=== PATIENT | male | born 1960 | race Caucasian/White ===

== ENCOUNTER 2021-11-12 00:42 | Day surgery (SDC) | payer BC, SELFPAY ==
[2021-10-29 13:36] VITALS: BMI 26.6
[2021-11-12 12:02] VITALS: BP 136/84; PULSE 84; RESP 16; TEMP 36.8; O2SAT 99
[2021-11-12] MEDS: LACTATED RINGERS 1,000 ML 150 ML IV CONT (12:12)
--- NOTE | 2021-11-12 12:16 | WPDANESEPPF ---
Anes - Initial Pre Proc Eval Procedure: Operation Date: 11/12/21 13:15 Proposed Procedures p Screening Colonoscopy - Ramsey Kruse MD Date/Time: 11/12/21 12:16 Surgeon: Ramsey Kruse MD Pre Op Diagnosis: neoplasm screening Patient Data Age: 61 Gender: M Height: 1.68 m Weight: 73.9 kg Last Vital Signs Temp 36.8 C 11/12/21 12:02 Pulse 84 11/12/21 12:02 Resp 16 11/12/21 12:02 BP 136/84 11/12/21 12:02 Pulse Ox 99 11/12/21 12:02 Allergies Allergy/AdvReac Type Severity Reaction Status Date / Time No Known Allergies Allergy Unknown Verified 11/12/21 12:01 Home Medications Medication Instructions Recorded Confirmed Type No Home Medications 06/22/20 11/12/21 History Patient hx anesthesia problems: none Family hx anesthesia problems: none Results Review: All pre-operative results and documents have been reviewed as part of the pre-operative evaluation. PMFSH Family History Family History Father Family history of hepatitis Family history of malignant neoplasm Social History Social History Smoking status: Never smoker Alcohol intake: current Drinks per week: 10 Substance use: never Substance use type: does not use Living arrangements: with family Gender identity (if verbalized by the patient): Male Spiritual care concerns: No Anes - Eval Final PreProcedure Day of Procedure 11/12/21 12:16 Patient weight: overweight Heart: regular rate and rhythm Lungs: clear to auscultation Airway: Mallampati scale class II Neurological: alert and oriented Last oral intake: >/= 8 hours ASA classification: II Emergent: no Anesthetic plan: proceed Anesthesia type and monitoring: general GIVS and standard monitoring Results Review: All pre-operative results and documents have been reviewed as part of the pre-operative evaluation. Informed Consent: The patient's anesthetic plan and its attendant risks and benefits were discussed with the patient/family/POA. Questions were solicited and answers provided to the satisfaction of the patient/family/POA.
--- NOTE | 2021-11-12 12:46 | WPDGICN ---
Assessment and Plan Assessment and plan (1) Family history of colonic polyps: Code(s): Z83.71 - Family history of colonic polyps Status: Acute Assessment and Plan: Patient's sister had colon polyps. Patient presents today for neoplasia screening colonoscopy. Further recommendations will be given after endoscopy. GI Consult Note Consult date/time: 11/12/21 12:46 HPI: Mark Bunn is a 61 year old male Presents for screening colonoscopy. Patient reports that his current weight appetite and bowel movements are normal. He denies abdominal pain. He has had no bleeding. Family history is significant that he his sister who is a triplet. Was found to have colon polyps. Patient presents today for neoplasia screening colonoscopy. Review of Systems Review of Systems: All systems reviewed & are unremarkable except as noted in HPI and below PMFSH Family History Family History Father Family history of hepatitis Family history of malignant neoplasm Social History Social History Smoking status: Never smoker Alcohol intake: current Drinks per week: 10 Substance use: never Substance use type: does not use Living arrangements: with family Gender identity (if verbalized by the patient): Male Spiritual care concerns: No Meds Home Medications and Allergies Home Medications Medication Instructions Recorded Confirmed Type No Home Medications 06/22/20 11/12/21 History Allergies Allergy/AdvReac Type Severity Reaction Status Date / Time No Known Allergies Allergy Unknown Verified 11/12/21 12:01 Vital Signs Vital Signs - 24 hr 11/12/21 12:02 Temperature 98.2 F Pulse Rate 84 Respiratory Rate 16 Blood Pressure 136/84 Pulse Oximetry 99 Exam Narrative: Physical exam reveals patient to be alert. Vital signs stable. HEENT exam is unremarkable. Patient is anicteric. Lungs are clear to auscultation and percussion. Heart is without murmur or extra sounds. Abdominal exam bowel sounds are present soft nontender with no organomegaly. Digital external rectal exam is normal.
[2021-11-12 12:49] VITALS: BP 105/62; PULSE 67; RESP 17; O2SAT 99
[2021-11-12 12:59] VITALS: BP 106/86; PULSE 69; RESP 18; O2SAT 99
[2021-11-12 13:09] VITALS: BP 132/78; PULSE 73; RESP 23; O2SAT 99
== END 2021-11-12 13:22 | disposition home or self-care (01) ==
PROVIDERS: PCP Internal Medicine; Visit Provider Internal Medicine Gastroenterology
PROC: 0DJD8ZZ Inspection of Lower Intestinal Tract, Via Natural or Artificial Opening Endoscopic (ICD-10-PCS; CPT 45378; principal; 2021-11-12 13:15)
DX: Z12.11 Encounter for screening for malignant neoplasm of colon (principal); Z83.71 Family history of colonic polyps; D12.8 Benign neoplasm of rectum
CPT/HCPCS: 45385; 88305; J2704; J7120

== ENCOUNTER 2024-10-22 06:49 | Outpatient (CLI) | payer BC, SELFPAY ==
--- NOTE | ~2024-10-22 | MR_ITS ---
MRI of the right shoulder Technique: Axial proton-density fat-sat images, coronal proton density fat-sat and T2 fat-sat images, and sagittal T1-weighted and T2 fat-sat images were acquired. Clinical History: Pain Findings: There is severe AC joint degenerative change, the bony productive change of the distal clav icle in particular. Coracoclavicular, coracoacromial, coracohumeral ligaments appear intact. There are complete, full-thickness tears of the entirety of the supraspinatus and infraspinatus tendo ns, which appears retracted to the level of glenoid. Fluid-filled defect measures approximately 5.4 x 4.9 cm in size. Tendon of long head of the biceps is intact, with questionable medial subluxation or dislocation. Possible tearing of the distal subscapularis tendon resulting in the aforementioned med ial biceps tendon subluxation/dislocation. There are extensive degenerative tearing of the superior labrum extending to anterosuperior and poste rior superior portions. Humeral head is high riding, with a medial osteophyte present. Inferior glenohumeral ligament is inta ct. Small glenohumeral joint effusion present. There is marked fatty atrophy infraspinatus muscle bel ly. Probable mild loss of bulk of the supraspinatus muscle belly. Impression: Massive rotator cuff tear, as detailed above, with complete full-thickness tears of the supraspinatus and infraspinatus tendons. Marked fatty atrophy infraspinatus muscle belly. Probable mild loss of bu lk of the supraspinatus muscle belly. Suspected tearing of the distal subscapularis tendon with probable medial dislocation/subluxation of the long head biceps tendon. Extensive degenerative SLAP tear of the labrum. Severe AC joint degenerative change. Reviewed, dictated and finalized at location . Impression: Massive rotator cuff tear, as detailed above, with complete full-thickness tear s of the supraspinatus and infraspinatus tendons. Marked fatty atrophy infraspi natus muscle belly. Probable mild loss of bulk of the supraspinatus muscle levin y. Suspected tearing of the distal subscapularis tendon with probable medial dislo cation/subluxation of the long head biceps tendon. Extensive degenerative SLAP tear of the labrum. Severe AC joint degenerative change.
== END 2024-10-22 06:50 | disposition home or self-care (01) ==
LOC: MICIMG 06:50
PROVIDERS: PCP Physician Assistant Medical; Visit Provider Nurse Practitioner Family
DX: M75.121 Complete rotator cuff tear or rupture of right shoulder, not specified as traumatic (principal); S43.431A Superior glenoid labrum lesion of right shoulder, initial encounter; M62.511 Muscle wasting and atrophy, not elsewhere classified, right shoulder; M19.011 Primary osteoarthritis, right shoulder; X58.XXXA Exposure to other specified factors, initial encounter
CPT/HCPCS: 73221

== ENCOUNTER 2024-12-28 10:40 | Outpatient (CLI) | payer BC, SELFPAY ==
--- NOTE | ~2024-12-28 | CT_ITS ---
EXAMINATION: CT shoulder RT wo con DATE: 12/28/2024 11:01 INDICATION: Right shoulder pain and limited range of motion for preoperative planning. TECHNIQUE: High resolution computed tomography (CT) of the right shoulder was performed without intra venous contrast. Additional sagittal and coronal reconstructions were performed. Automated exposure c ontrol and iterative reconstruction technique were employed. The dose-length product was 322.80 mGy-c m. COMPARISON: Right shoulder MR dated 10/22/2024 FINDINGS: Cephalad subluxation of the right humeral head with respect to the glenoid with secondary remodeling of the undersurface of acromion along with prominent fatty atrophy of the supraspinatus, infraspinatu s and subscapularis muscle bellies consistent with chronic rotator cuff tear of the corresponding ten dons. No acute fracture. Moderate glenohumeral and acromioclavicular osteoarthritis. Cystic change al yanni the greater tuberosity likely related to chronic rotator cuff disease. No joint effusion. Calcifi ed right upper and lower lobe nodules along with calcified nodule at the dome of the liver and calcif ied right hilar and mediastinal lymph nodes consistent with old granulomatous disease. No pathologica lly enlarged right axillary lymphadenopathy. Moderate to severe lower cervical and moderate thoracic spondylosis. IMPRESSION: 1. 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 Reviewed, dictated and finalized at location A. IMPRESSION: 1. 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
--- OUTSIDE RECORDS SUMMARY | 2024-12-28 11:56 | XMS_ITS | Encounter Summary ---
Author Organization [facility] Address [address] [place] [address] Care Team Providers Care Ski Production Supervisor Name Role Phone Marcelino Everett MD Primary Care Provider [phone] Encounter Details Date Type Department Care Team (Late st Contact Info) Description 02/21/2020 Lab Requisition [facility] DermPath Lab [address] [facility] [facility] [place] [address] Nissa Batista DO [address] [facility] [address] [place] [address] Social History Tobacco Use Types Packs/Day Years Used Date Smoking Tobacco: Never Assessed Sex and Gender Information Value Date Recorded Sex Assigned at Not on file Legal Sex Male 3:45 PM CDT Gender Identity Not on file Sexual Orientation Not on file documented as of this encounter Plan of Treatment Not on file documented as of this encounter Procedures Procedure Name Priority Date/Time Associated Diagnosis Comments DERMATOPATHOLOGY Routine 02/17/2020 12:0 0 AM CDT documented in this encounter Results * DERMATOPATHOLOGY (02/17/2020 12:00 AM CDT) Case Report Dermatopathology Report Case: [id number] Authorizing Provider: Nissa Batista DO Collected: 02/17/2020 12:00 AM Ordering Location: [facility] DermPath Lab Received: 02/21/2020 10:55 AM Pathologist: Mary Velasquez MD Specimen: Skin, left ant shoulder 0 8:02 PM CDT DERMATOPATHOLOGY LABORATORY Final Diagnosis Specimen A. SKIN, left ant shoulder: ACTINIC KERATOSIS, LICHENOID (L57.0) 0 8:02 PM CDT DERMATOPATHOLOGY LABORATORY at 2002 CDT Clinical History LPLK; R/O atypia 0 8:02 PM CDT DERMATOPATHOLOGY LABORATORY Gross Description Specimen A: Received is one formalin filled container labeled with the patient's name and designated left ant shoulder. The specimen consists of a shave biopsy measuring 7x4x1 mm. Jar 0. 0 8:02 PM CDT DERMATOPATHOLOGY LABORATORY Microscopic Description Specimen A. SKIN, left ant shoulder: There is focal parakeratosis. The lower half of the epidermis shows disorderly maturation of keratinocytes with nuclear pleomorphism. The dermis shows a band-like, chronic inflammatory infiltrate with occasional apoptotic keratinocytes and some basal vacuolar alteration. 0 8:02 PM CDT DERMATOPATHOLOGY LABORATORY Disclaimer An external and internal positive and negative controls are appropriate for the histochemical, immunohistochemical and immunofluorescence stain(s) in this case (if any), except where stated explicitly. The performance characteristics of the stain(s) cited in this report were developed and its performance characteristic determined by the Dermatopathology Laboratory at [facility], directed by Dr. Sita Leahy. These tests need not be, and therefore are not, approved by the [place] Food and Drug Administration. The tests are used for clinical purposes. Billing Codes Specimen Charges Stain Charges 25130 1 0 8:02 PM CDT DERMATOPATHOLOGY LABORATORY Embedded Images 0 8:02 PM CDT DERMATOPATHOLOGY LABORATORY Pathology/Cytolog y TISSUE SPECIMEN FROM SKIN / Unknown 02/17/2020 02/21/2020 10:55 AM CDT us Nissa Batista DO LAB - PATHOLOGY/CYTOLOGY ORDERABLES Final Result DERMATOPATHOLOGY LABORATORY [facility] - Department of Dermatology [facility]/[address] [address], [facility] [phone] documented in this encounter Visit Diagnoses Not on filedocumented in this encounter Care Teams Ski Production Supervisor Relationship Specialty Start Date End Date Marcelino Everett MD [address] [place] [address] [address] [place] [address] PCP - General 11/18/21 documented as of this encounter
--- OUTSIDE RECORDS SUMMARY | 2024-12-28 11:56 | XMS_ITS | Clinical Summary ---
Author Organization [facility] Address [address] [place] [address] Care Team Providers Care Chicken Hanger Name Role Phone Marcelino Everett MD Primary Care Provider [phone] Source Comments [facility],non-owned Affiliates and Associated Physician Practices is amultiple site organization consisting of ambulatory clinics and hospital sitesin [place], [place] and [place]. This disclosure is being madepursuant to the Care Everywhere program and may not contain all information available regarding this patient. Last updated 18.[facility] Social History Tobacco Use Types Packs/Day Years Used Date Smoking Tobacco: Never Assessed Sex and Gender Information Value Date Recorded Sex Assigned at Not on file Legal Sex Male 3:45 PM CDT Gender Identity Not on file Sexual Orientation Not on file Plan of Treatment Health Maintenance Due Date Last Done Comments COLOGUARD (AGES 45-75) - COL ON CA SCREENING 1959 COLON MONITORING 1959 COLONOSCOPY - COLON CA SCREENING 1959 CT COLONOGRAPHY - COLON CA SCREENING 1960 Colorectal Cancer Screening 1959 FIT - COLON CA SCREENING 1959 FLEX SIG - COLON CA SCREENING 1959 LIPID TESTING 1959 HIV SCREENING 1974 HEPATITIS C SCREENING 04/19/1977 DTAP/TDAP/TD VACCINES (1 - Tdap) 1978 PNEUMOCOCCAL VACCINE 50+ (1 of 1 - PCV) 2009 ZOSTER VACCINE (1 of 2) 2009 COVID-19 VACCINE ( - 2023-2 5 season) 2024 DEPRESSION SCREENING 07/21/2024 INFLUENZA VACCINE (Season Ended) 2025 Respiratory Syncytial Virus (RSV) Vaccine Pt: or over 60 yrs (1 - 1-dose 75+ series) 2034 HEPATITIS B VACCINE Aged Out No longe r eligible based on patient's age to complete this topic HIB VACCINE Aged Out No longer eligi ble based on patient's age to complete this topic HPV VACCINE Aged Out No longer eligi ble based on patient's age to complete this topic MENINGOCOCCAL (Group B) VACC INE SHARED DECISION-MAKING Aged Out No longer eligibl e based on patient's age to complete this topic MENINGOCOCCAL GROUPS A/C/Y/W VACCINE Aged Out No longer eligible b ased on patient's age to complete this topic Insurance Care Teams Chicken Hanger Relationship Specialty Start Date End Date Marcelino Everett MD [address] [place] [address] [place] [id number] PCP - General 11/18/21
== END 2024-12-28 10:41 | disposition home or self-care (01) ==
PROVIDERS: PCP Nurse Practitioner Family; Visit Provider Orthopaedic Surgery
DX: M12.811 Other specific arthropathies, not elsewhere classified, right shoulder (principal)
CPT/HCPCS: 73200

== ENCOUNTER 2025-01-13 10:01 | Outpatient (CLI) | payer BC, SELFPAY ==
--- NOTE | 2025-01-13 10:16 | ECG_ITS ---
Test Date: 2025-01-13 10:25:52 Measurements Intervals Lowman Rate: 82 P: 49 VA: 166 QRS: 94 QRSD: 141 T: -7 QT: 400 QTc: 467 Interpretive Statements SINUS RHYTHM RIGHT AXIS DEVIATION POSSIBLE LEFT ATRIAL ENLARGEMENT RIGHT BUNDLE BRANCH BLOCK MINIMAL Q WAVES- INFERIOR LEADS ABNORMAL ECG No previous ECG available for comparison Electronically Signed On 01-13-2025 10:47:53 CDT by Kun Deluca D.O.
[2025-01-13 11:14] LABS: Hematocrit 43.3 % (42.0-52.0); Hemoglobin 14.1 g/dL (14.0-18.0)
[2025-01-13 11:31] LABS: Albumin Level 4.3 g/dL (3.5-5.1); Estimated Glomerular Filt Rate > 60
== END 2025-01-13 10:02 | disposition home or self-care (01) ==
PROVIDERS: PCP Nurse Practitioner Family; Visit Provider Orthopaedic Surgery
DX: R94.31 Abnormal electrocardiogram [ECG] [EKG] (principal); M12.811 Other specific arthropathies, not elsewhere classified, right shoulder
CPT/HCPCS: 36415; 82040; 82565; 85014; 85018; 93005

== ENCOUNTER 2025-03-30 11:44 | Outpatient (CLI) | payer BC, SELFPAY ==
[2025-03-30 12:33] LABS: Hematocrit 45.8 % (42.0-52.0); Hemoglobin 15.5 g/dL (14.0-18.0); Immature Granulocyte Percent A 0.3 % (0-0.5); Lymphocytes Absolute Auto 1.86 K/mm3 (0.9-3.2); Mean Corpuscular HGB Conc 33.8 g/dl (32-36); Mean Corpuscular Hemoglobin 31.0 pg (26-34); Mean Corpuscular Volume 91.6 fl (80-100); Nucleated Red Blood Cells Absolute Auto 0.000 K/mm3 (0.0-0.012); Nucleated Red Blood Cells Perc 0.0 % (0.0-0.2); Platelet Count Result 174 k/mm3 (150-375); Red Blood Count 5.00 M/mm3 (4.6-6.20); White Blood Count 7.3 K/mm3 (4.5-10.0)
--- OUTSIDE RECORDS SUMMARY | 2025-03-30 12:48 | XMS_ITS | Clinical Summary ---
Author Organization [facility] Address [address] [place] [address] Care Team Providers Care Environmental Scientists Name Role Phone Marcelino Everett MD Primary Care Provider [phone] Source Comments [facility],non-owned Affiliates and Associated Physician Practices is amultiple site organization consisting of ambulatory clinics and hospital sitesin [place], [place], [place] and [place]. This disclosure is being madepursuant to the Care Everywhere program and may not contain all information available regarding this patient. Last updated 18.[facility] Social History Tobacco Use Types Packs/Day Years [...] season) 2024 DEPRESSION SCREENING 07/21/2024 INFLUENZA VACCINE (#1) 2025 Respiratory Syncytial Virus (RSV) Vaccine Pt: [...] to complete this topic Insurance Care Teams Environmental Scientists Relationship Specialty Start Date End Date Marcelino Everett MD [address] [place] [address] [place] [address] PCP - General 11/18/21
--- OUTSIDE RECORDS SUMMARY | 2025-03-30 12:48 | XMS_ITS | Encounter Summary ---
Author Organization [facility] Address [address] [place] [address] Care Team Providers Care Metal Stamping Machine Operator Name Role Phone Marcelino Everett MD Primary Care Provider [phone] Encounter Details Date Type Department Care Team (Late st Contact Info) Description 02/21/2020 Lab Requisition [facility] DermPath Lab [address] [facility] [address] [facility] [place] [address] Nissa Batista DO [address] [facility] [address] [place] [address] Social History Tobacco Use Types Packs/Day Years [...] AM CDT) Case Report Dermatopathology Report Case: [id number] Authorizing Provider: Nissa Batista DO Collected: 02/17/2020 12:00 AM Ordering Location: [facility] DermPath Lab Received: 02/21/2020 10:55 AM [...] characteristic determined by the Dermatopathology Laboratory at [facility], directed by Dr. Sita Leahy. These tests need not be, and therefore are not, approved by the [place] Food and Drug Administration. The tests are used for clinical purposes. Billing Codes Specimen Charges Stain Charges 33252 1 0 8:02 PM CDT DERMATOPATHOLOGY LABORATORY Embedded Images 0 8:02 PM CDT DERMATOPATHOLOGY LABORATORY Pathology/Cytolog y TISSUE SPECIMEN FROM SKIN / Unknown 02/17/2020 02/21/2020 10:55 AM CDT us Nissa Batista DO LAB - PATHOLOGY/CYTOLOGY ORDERABLES Final Result DERMATOPATHOLOGY LABORATORY [facility] - Department of Dermatology [facility]/[address] [address], [facility] [phone] documented in this encounter Visit Diagnoses Not on filedocumented in this encounter Care Teams Metal Stamping Machine Operator Relationship Specialty Start Date End Date Marcelino Everett MD [address] [place] [address] [address] [place] [address] PCP - General 11/18/21 documented as of this encounter
[2025-03-30 13:42] LABS: MRSA (PCR) NOT DETECTED (NOT DETECTE)
== END 2025-03-30 11:45 | disposition home or self-care (01) ==
PROVIDERS: PCP Physician Assistant Medical; Visit Provider Orthopaedic Surgery
DX: M75.100 Unspecified rotator cuff tear or rupture of unspecified shoulder, not specified as traumatic (principal); M12.811 Other specific arthropathies, not elsewhere classified, right shoulder; Z01.818 Encounter for other preprocedural examination
CPT/HCPCS: 36415; 85025; 87641

== ENCOUNTER 2025-04-19 00:33 | Day surgery (SDC) | payer BC, SELFPAY ==
[2025-03-30 11:55] VITALS: PULSE 75; RESP 16; TEMP 36.7; O2SAT 99; BMI 29.7
--- NOTE | 2025-03-30 12:09 | PC.NURSE ---
Report to the Outpatient Waiting Room, entrance under the green pavilion located off [facility], at time __0600am on date __04/19/25 . Planned Procedure Time: __0730am .? Time changes happen often and if your time is changed the preop area will call you the afternoon before. - You and your visitor will be asked to self-screen and do not enter if you have any COVID symptoms. Please call surgeon if you need to reschedule. - A mask is optional within the hospital at this time. Patients may have clear liquids (water, carbonated beverages, clear teas, apple juice) until 3 hours prior to surgery with a maximum of 20 ounces. - No food from midnight until time of surgery and no smoking, or chewing tobacco (or any form of nicotine). No chewing gum, candy or mints. (04:30am) Take only the following medications with a SIP of water on the morning of surgery: _NONE DO NOT STOP ANY OF YOUR OTHER PRESCRIPTION MEDICATIONS PRIOR TO SURGERY EXCEPT THE FOLLOWING Hold all vitamins and supplements for 3 days per anesthesiologist.Date of last dose is 04/15/25 Medications to discontinue per physician NSAIDS/ASPIRIN for a week per Dr Kincaid Date to take last dose 04/11/25 Please no make-up, nail tajik, hairspray, perfume, deodorant, or body powder the day of surgery.? No jewelry (including any body piercings) or valuables the day of surgery, leave them at home.? Please take a shower or bath the night before, or the morning of, surgery with an antibacterial soap GOLD DIAL .? Wear comfortable, loose fitting clothing.? Overnight bag w necessities. - Jewelry must be removed prior to entering the operating room.? Rings and piercings that are not removed may be cut off. - The hospital will not accept responsibility for valuables.? - Please leave all valuables, including medications, at home the day of surgery. If you are going home after surgery, a licensed truck driver must drive you home.? - NO public transportation without another adult if you receive anesthesia. - We recommend that an adult stay with you for 24 hours following discharge. - We also recommend that you do not drive, make important decision, drink alcoholic beverages, or take any drugs that were not prescribed by your health care provider for at least 24 hours after your discharge time. Follow any additional instructions given to you from your surgeon. Telephone instructions given to __Patient & and asked if any additional questions and then verbalized understanding. Patient advised to call surgeon office or pre surgery nurse liaison [phone] if any additional questions.
[2025-04-19] VITALS (14 sets, daily range): BP systolic 118–169; BP diastolic 57–88; PULSE 78–91; RESP 12–18; TEMP 35.9–36.6; O2SAT 94–100
--- NOTE | ~2025-04-19 | XR_ITS ---
EXAMINATION: XR shoulder RT min 2V, 04/19/2025 9:50 CDT HISTORY: POST OP RIGHT REVERSE TOTAL SHOULDER COMPARISON: No comparisons available. Findings: No acute fracture or malalignment. Arthroplasty intact Soft tissues unremarkable. Impression: No acute fracture or malalignment. Reviewed, dictated and finalized at location P. Impression: No acute fracture or malalignment.
--- OUTSIDE RECORDS SUMMARY | 2025-04-19 00:36 | XMS_ITS | Clinical Summary ---
Author Organization [facility] Address [address] [place] [address] Care Team Providers Care Rug Weaver Name Role Phone None, Provider Primary Care Provider Unavaila ble Allergies No known active allergies Medications No known medications Active Problems No known active problems Social History Tobacco Use Types Packs/Day Years Used Date Smoking Tobacco: Never Smokeless Tobacco: Never Alcohol Use Standard Drinks/Week Comments Not Currently 0 (1 standard drink = 0.6 oz pur e alcohol) Sex and Gender Information Value Date Recorded Sex Assigned at Not on file Legal Sex Male 6:11 PM CDT Gender Identity Male 11/06/2021 9:37 AM CDT Sexual Orientation Straight 11/06/2021 9: 37 AM CDT Last Filed Vital Signs Vital Sign Reading Time Taken Comments Blood Pressure 109/69 06/29/2024 2:00 PM FILM TOUCH UP INSPECTOR Pulse 58 06/29/2024 2:00 PM FILM TOUCH UP INSPECTOR Temperature 36.1 C (97 F) 06/29/2024 1:45 PM FILM TOUCH UP INSPECTOR Respiratory Rate 18 06/29/2024 2:00 PM FILM TOUCH UP INSPECTOR Oxygen Saturation 95% 06/29/2024 2:00 PM FILM TOUCH UP INSPECTOR Inhaled Oxygen Concentration - - Weight 79.4 kg (175 lb) 06/29/2024 11:05 AM FILM TOUCH UP INSPECTOR Height 167.6 cm (5' 6) 06/29/2024 11:05 AM FILM TOUCH UP INSPECTOR Body Mass Index 28.25 06/29/2024 11:05 AM FILM TOUCH UP INSPECTOR Plan of Treatment Health Maintenance Due Date Last Done Comments Colorectal Cancer Screening Colonoscopy (10 Years) 1959 Hepatitis C 1977 DTaP, Tdap and Td Vaccines ( 1 - Tdap) 1978 Pneumococcal Vaccine: 50+ Years (1 of 1 - PCV) 2009 COVID-19 Vaccine ( - 2023-2 5 season) 2025 RSV Immunization or 60+ Years (1 - 1-dose 75+ series) 2034 Zoster Vaccines Completed 01/11/2020, 08/13/2019 Meningococcal B Vaccine Aged Out No l onger eligible based on patient's age to complete this topic Meningococcal Vaccine Aged Out No francesco mayda eligible based on patient's age to complete this topic RSV Immunizations Under 20 Months Aged Out No longer eligible b ased on patient's age to complete this topic Insurance MEDICARE PART A [facility] Care Teams Rug Weaver Relationship Specialty Start Date End Date None, ProviderMD PCP - General 05/08/20
--- OUTSIDE RECORDS SUMMARY | 2025-04-19 00:36 | XMS_ITS | Clinical Summary ---
Author Organization [facility] Address [address] [place] [address] Care Team Providers Care Senior Quality Technician Name Role Phone Marcelino Everett MD Primary Care Provider Source Comments [facility],non-owned Affiliates and Associated Physician Practices is amultiple site organization consisting of ambulatory clinics and hospital sitesin [place], [place], [place] and [place]. This disclosure is being madepursuant to the Care Everywhere program and may not contain all information available regarding this patient. Last updated 18.[facility] Social History Tobacco Use Types Packs/Day Years [...] 2009 ZOSTER VACCINE (1 of 2) 2009 DEPRESSION SCREENING 07/21/2024 COVID-19 VACCINE (1 - 2023-2 5 season) 2025 INFLUENZA VACCINE (#1) 2025 Respiratory Syncytial Virus [...] to complete this topic Insurance Care Teams Senior Quality Technician Relationship Specialty Start Date End Date Marcelino Everett MD [address] [place] [address] [place] [id number] PCP - General 11/18/21
--- OUTSIDE RECORDS SUMMARY | 2025-04-19 00:36 | XMS_ITS | Encounter Summary ---
Author Organization [facility] Address [address] [facility] [place] [address] Care Team Providers Care Director Agricultural Services Name Role Phone Marcelino Everett MD Primary Care Provider [phone] Encounter Details Date Type Department Care Team (Late st Contact Info) Description 02/21/2020 Lab Requisition [facility] [address] [facility], [facility] [place] [address] Nissa Batista DO [address] [facility] [address] [place] [address] Social History Tobacco Use Types Packs/Day Years [...] AM CDT) Case Report Dermatopathology Report Case: [id number] Authorizing Provider: Nissa Batista DO Collected: 02/17/2020 12:00 AM Ordering Location: [facility] Received: 02/21/2020 10:55 AM Pathologist: [...] characteristic determined by the Dermatopathology Laboratory at [facility], directed by Dr. Sita Leahy. These tests need not be, and therefore are not, approved by the [place] Food and Drug Administration. The tests are used for clinical purposes. Billing Codes Specimen Charges Stain Charges 50511 1 0 8:02 PM CDT DERMATOPATHOLOGY LABORATORY Embedded Images 0 8:02 PM CDT DERMATOPATHOLOGY LABORATORY Pathology/Cytolog y TISSUE SPECIMEN FROM SKIN / Unknown 02/17/2020 02/21/2020 10:55 AM CDT us Nissa Batista DO LAB - PATHOLOGY/CYTOLOGY ORDERABLES Final Result DERMATOPATHOLOGY LABORATORY [facility] - Department of Dermatology [facility]/[address] [address], [facility] [phone] documented in this encounter Visit Diagnoses Not on filedocumented in this encounter Care Teams Director Agricultural Services Relationship Specialty Start Date End Date Marcelino Everett MD [address] [place] [address] [address] [place] [address] PCP - General 11/18/21 documented as of this encounter
--- NOTE | 2025-04-19 06:08 | SUR.PREOP ---
Dr Kincaid notified of right hand red and swollen. Per pt it is from his arthritis. Per Dr Kincaid okay to proceed.
[2025-04-19] MEDS: ACETAMINOPHEN 500 MG TABLET 1000 MG PO (06:25)
[2025-04-19] MEDS: TRANEXAMIC ACID 1,000MG/ISO100 1,000 MG/100 ML BAG 200 MG IVPB (06:35)
[2025-04-19] MEDS: LACTATED RINGERS 1,000 ML 30 ML IV CONT ×2 (06:55→09:37)
--- NOTE | 2025-04-19 07:00 | WPDANESEPPF ---
Anes - Initial Pre Proc Eval Procedure: Operation Date: 04/19/25 07:30 Proposed Procedures p Right Reverse Total Shoulder Arthroplasty - Hubert Kincaid MD Date/Time: 04/19/25 07:00 Surgeon: Hubert Kincaid MD Pre Op Diagnosis: right rotator cuff arthropathy Patient Data Age: 64 Gender: M Height: 1.65 m Weight: 79.9 kg Last Vital Signs Temp 36.6 C 04/19/25 05:55 Pulse 78 04/19/25 05:55 Resp 18 04/19/25 05:55 BP 135/79 04/19/25 05:55 Pulse Ox 97 04/19/25 05:55 O2 Del Method Room Air 04/19/25 05:55 Allergies Allergy/AdvReac Type Severity Reaction Status Date / Time No Known Allergies Allergy Unknown Verified 04/19/25 06:44 Home Medications ?Medication ?Instructions ?Recorded ?Confirmed ?Type bnmtiyqt-[id number] 300 mcg-K 60 1 tablet PO DAILY 10/09/23 04/19/25 History mcg-lycop 600 mcg-lutein 300 mcg tablet (Centrum Silver Men) Patient hx anesthesia problems: none Family hx anesthesia problems: none Results Review: All pre-operative results and documents have been reviewed as part of the pre-operative evaluation. [facility] Past Medical History Medical History Rotator cuff tear Pain, joint, shoulder, left Right shoulder pain Pain in finger Gout Osteoarthritis of knee, unspecified Surgical History Surgical History History of knee replacement Right, 2019 H/O hernia repair Family History Family History Father Family history of hepatitis Family history of malignant neoplasm Mother Hypertension Social History Social History Social History: 09/13/24 very confident with medical forms Smoking status: Never smoker Second hand tobacco smoke exposure: No Alcohol intake: current Drinks per week: 10 Substance use: never Substance use type: does not use Do You Feel Safe in your Home?: Yes Lack of Transportation: No Lack of Food: Never True Current Housing: I Have Housing Concerned About Future Housing: No Difficulty Paying Gas/Electric Bills: No Difficulty Paying for Meds: No Currently Unemployed: No Education: High School Diploma/GED Difficulty w/ Childcare or Family Care: No Living arrangements: with family Occupation/Education: occupation 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 [employer] Gender identity (if verbalized by the patient): Male Spiritual care concerns: No Agree to blood products: Yes Anes - Eval Final PreProcedure Day of Procedure 04/19/25 07:00 Patient weight: overweight Heart: regular rate and rhythm Lungs: clear to auscultation Airway: Mallampati scale class II Neurological: alert and oriented Last oral intake: >/= 8 hours ASA classification: II Emergent: no Anesthetic plan: proceed Anesthesia type and monitoring: general ETT and standard monitoring Results Review: All pre-operative results and documents have been reviewed as part of the pre-operative evaluation. Informed Consent: The patient's anesthetic plan and its attendant risks and benefits were discussed with the patient/family/POA. Questions were solicited and answers provided to the satisfaction of the patient/family/POA.
--- NOTE | 2025-04-19 07:09 | WPDHPUPDATE1 ---
History and Physical Update Update Date/Time: 04/19/25 07:09 History and Physical has been reviewed, including an updated exam of the patient. There are NO changes in the patient's condition. Risks, benefits, and alternatives have been discussed and questions answered. Patient agrees to proceed with procedure.
--- NOTE | 2025-04-19 07:29 | WPDANESPNB ---
Anes - Peripheral Nerve Block Date/Time: 04/19/25 07:29 I have discussed with the patient/family/POA the placement of a peripheral nerve block for post-operative pain management, including associated risks, benefits, complications, and side effects. Alternative methods of post-operative analgesia were detailed. Questions were solicited and answers provided to the satisfaction of the patient/family/POA. Time-Out: A pre-procedural Time-Out was completed immediately before starting the procedure and confirmed: Patient Identification, Site, Procedure, Patient Position and the Availability of Requisite Equipment. Clinical Indications: Acute post-operative pain management requested by the operative surgeon. Nerve Block Insertion Note Anes-nerve block: interscalene right Patient position: supine Skin prep: chlorhexidine Needle: 22 gauge, stimulating, insulated echogenic needle. Needle length: 50 mm Technique: ultrasound Injectate: bupivacaine 0.5% with epi 5 mcg/ml (30cc no epi) and dexamethasone (mg) (8) Observations: tolerated well Complications: none Procedure start time:: 718 Procedure end time:: 726
[2025-04-19] MEDS: ceFAZolin 2 GM in SODIUM CHLORIDE 0.9% IV 50 ML 100 ML IVPB ×2 (07:30→15:23)
[2025-04-19] MEDS: SODIUM CHLORIDE 0.9% IV 37.7 ML, MORPHINE SULFATE INJ (*CRX) 2 MG, ROPivacaine HCL 1% 2... INFILTRATE (08:09)
[2025-04-19] MEDS: VANCOMYCIN HCL 1,000 MG VIAL 1000 MG TOPICAL (08:21)
[2025-04-19] MEDS: TRANEXAMIC ACID 1,000 MG/10 ML AMPUL 1000 MG IV PUSH (09:12)
--- NOTE | 2025-04-19 09:16 | W.PM.PROC2 ---
Procedure Note - Detailed Date of Procedure 04/19/25 Pre-op Diagnosis Right rotator cuff arthropathy Post-op Diagnosis Same Procedure Performed Reverse total shoulder arthroplasty, right Surgeon Hubert Kincaid MD Anesthesia General and Regional (Interscalene block.) Findings Severe massive rotator cuff deficiency. Good bone quality. Subscapularis not repairable. Lesser tuberoplasty relieved coracobrachialis impingement. Description of Procedure The patient was given an interscalene block in the preoperative area. Preoperative antibiotics were given. The patient was transferred to the operating room and a general anesthetic was administered. The beach chair position was used at 45 degrees. All bony prominences were padded. 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 A sterile prep and drape was performed in the usual manner with ChloraPrep. A longitudinal incision was created at the anterior shoulder just lateral to the deltopectoral interval. Careful dissection was performed to expose the interval and protect the cephalic vein. The vein was retracted medially. The upper border of the pectoralis was released. Anterior circumflex vessel branches were suture ligated. The biceps was tenodesed. A subscapularis tenotomy was performed. The inferior capsule was released, exposing the humeral head. Osteophytes were removed. Care was taken to stay on bone to protect the axillary nerve. The neck anteversion and inclination were carefully assessed. Version was between 20? and 30?. The anatomic head cut was taken with the oscillating saw. The cut protector was placed, and attention was turned to the glenoid. Retractors were placed. Releases were carried out for exposure. The subscapularis was mobilized, the inferior capsule and long head of triceps released, and the superior and middle glenohumeral ligaments released as well. Labral tissue was resected as needed. Version and inclination were corrected according to preoperative templating. The sizing template was used to assess the baseplate position low on the glenoid, with an approximate 10 degrees corrections of retroversion and 10 degrees of inclination. A guide pin was placed. Minimal reaming was used to accomplish a flat surface without violating the subchondral bone. The boss was drilled, and the real component was impacted into position. The central compression screw was placed. Supplemental locking screws were placed superiorly, and inferiorly. The glenosphere was impacted into the taper. Attention was turned to the humerus. The guide pin was placed, central drilling performed, and the broach trial inserted. The proximal humerus was reamed for the inset component. The humeral components were trialed. The real humeral stem, tray, and insert were impacted into position. The shoulder was copiously irrigated periodically with pulsatile lavage. The shoulder was reduced and stability confirmed. 1 gram of Vancomycin powder was placed in the joint. The biceps tenodesis was incorporated with the pectoralis tendon repair. The remaining tissue was closed with 2-0 Vicryl, 3-0 Stratafix and 4-0 Stratafix, and steri-strips. A sterile silver occlusive dressing and shoulder immobilizer were placed. The patient was transferred to the recovery room. [employer] Shoulder [employer] reverse TSA size 0 stem. +0 polyethylene insert. 10 augmented baseplate. 36 + 6 mm glenosphere. Estimated Blood Loss 200 Drains Yes (medium Hemovac) Pathology None sent Complications No immediate complications Condition Stable Disposition PACU [facility] Billing Surgery - Charge Forward: Surgery Billing
--- NOTE | 2025-04-19 10:57 | ADMGEN ---
This patient, Mark Bunn, was admitted to [facility] Surg Room 307-01. Patient/family oriented to hospital policies and general routines including ID bracelet, bed and alarms, visiting hours, pain management, procedures, bathroom and other care routines, personal items, smoking policy, room service/diet, and visiting hours. Information on how to activate the Rapid Response Team has been discussed. Patient/Family are encouraged to report perceived risks to care and to ask questions if they do not understand what they are told or what they should do.
[2025-04-19] MEDS: ASPIRIN 81 MG ENTERIC TABLET PO ×2 (13:00→21:08)
[2025-04-19] MEDS: MELOXICAM 7.5 MG TABLET PO ×2 (13:00→17:40)
[2025-04-19] MEDS: FAMOTIDINE 20 MG TABLET PO ×2 (13:01→21:08)
[2025-04-19] MEDS: OPTI-GEN TAB 1 TABLET PO (13:01)
[2025-04-19] MEDS: ACETAMINOPHEN 325 MG TABLET 650 MG PO ×2 (13:01→17:48)
[2025-04-20] MEDS: ACETAMINOPHEN 325 MG TABLET 650 MG PO ×2 (00:02→06:30)
[2025-04-20] MEDS: ceFAZolin 2 GM in SODIUM CHLORIDE 0.9% IV 50 ML 100 ML IVPB ×2 (00:02→06:34)
[2025-04-20 00:29] VITALS: BP 124/68; PULSE 74; RESP 18; TEMP 36.2; O2SAT 90
[2025-04-20 04:29] VITALS: BP 136/67; PULSE 72; RESP 18; TEMP 36.5; O2SAT 94
[2025-04-20 06:11] VITALS: BP 136/67; PULSE 72; RESP 18; TEMP 36.5; O2SAT 94
[2025-04-20 06:30] LABS: Hematocrit 39.4 % (42.0-52.0); Hemoglobin 13.4 g/dL (14.0-18.0); Immature Granulocyte Percent A 1.1 % (0-0.5); Lymphocytes Absolute Auto 0.79 K/mm3 (0.9-3.2); Mean Corpuscular HGB Conc 34.0 g/dl (32-36); Mean Corpuscular Hemoglobin 31.3 pg (26-34); Mean Corpuscular Volume 92.1 fl (80-100); Nucleated Red Blood Cells Absolute Auto 0.000 K/mm3 (0.0-0.012); Nucleated Red Blood Cells Perc 0.0 % (0.0-0.2); Platelet Count Result 183 k/mm3 (150-375); Red Blood Count 4.28 M/mm3 (4.6-6.20); White Blood Count 13.7 K/mm3 (4.5-10.0)
[2025-04-20 06:50] LABS: Anion Gap 6 mmol/L (4-12); Blood Urea Nitrogen 17 mg/dL (9-20); Calcium 8.9 mg/dL (8.4-10.2); Carbon Dioxide 24 mmol/L (22-30); Chloride 106 mmol/L (98-107); Estimated CRCL calculation 67 ml/min; Estimated Glomerular Filt Rate > 60; Glucose 114 mg/dL (65-110); Potassium 3.9 mmol/L (3.4-5.0); Sodium 136 mmol/L (137-145)
[2025-04-20 08:02] VITALS: BP 129/83; PULSE 70; RESP 18; TEMP 36.4; O2SAT 99
[2025-04-20] MEDS: FAMOTIDINE 20 MG TABLET PO (09:30)
[2025-04-20] MEDS: MELOXICAM 7.5 MG TABLET PO (09:30)
[2025-04-20] MEDS: OPTI-GEN TAB 1 TABLET PO (09:30)
[2025-04-20] MEDS: ASPIRIN 81 MG ENTERIC TABLET PO (09:30)
[2025-04-20] MEDS: SENNA/DOCUSATE SODIUM TABLET 2 TAB PO (09:30)
== END 2025-04-20 10:53 | disposition home or self-care (01) ==
LOC: ANHSURGERY 07:04 → ANH3MEDSUR 10:47
PROVIDERS: Physician Assistant Surgical; PCP Physician Assistant Medical; Visit Provider Orthopaedic Surgery
PROC: (CPT 23472; principal; 2025-04-19 07:30)
DX: M12.811 Other specific arthropathies, not elsewhere classified, right shoulder (principal); M25.711 Osteophyte, right shoulder; G89.18 Other acute postprocedural pain; Z98.890 Other specified postprocedural states; Z80.9 Family history of malignant neoplasm, unspecified
CPT/HCPCS: 64415; 23472; 36415; 73030; 80048; 85025; 86850; 86900; 86901; 97110; 97161; 97166; 97530; 97535; J0690; A4565; A9270; C1776; J0166; J1100; J1171; J1885; J2003; J2250; J2270; J2405; J2704; J2795; J3010; J3373; J7120